=== PATIENT | male | born 1970 | race Hispanic/Latino ===

== ENCOUNTER → 2020-07-12 | Outpatient (CLI) | payer BC ==
[2020-07-12 10:16] LABS: CREATININE 0.7 mg/dL (0.5-1.5)
== END | disposition home or self-care (01) ==
LOC: LAB 09:02
PROVIDERS: ATTEND Internal Medicine Gastroenterology
DX: K70.30 Alcoholic cirrhosis of liver without ascites (principal); R77.2 Abnormality of alphafetoprotein; R94.5 Abnormal results of liver function studies
CPT/HCPCS: 36415; 82565; 84520